=== PATIENT | female | born 1950 | race Caucasian/White ===

== ENCOUNTER 2021-06-29 11:43 | Emergency (ER) | payer OTHER ==
[2021-06-29 12:05] VITALS: BP 114/65; PULSE 53; TEMP 97.5
[2021-06-29 12:40] LABS: BASO % 0.4 % (0-2.0); HEMATOCRIT 39.8 % (32.4-45.2); HEMOGLOBIN 13.7 GM/dL (10.7-15.3); LYMPH % 18.8 % (8-40); MCH 32.4 pg (25.7-33.7); MCHC 34.4 g/dl (32.0-36.0); MEAN CELL VOLUME 94.1 fl (80-96); MEAN PLT VOLUME 8.9 fl (7.5-11.1); MONO % 5.5 % (3.8-10.2); NEUT % 75.3 % (42.8-82.8); PLATELET COUNT 255 10^3/uL (134-434); RBC 4.23 M/mm3 (3.60-5.2); RDW 13.8 % (11.6-15.6); WHITE BLOOD COUNT 9.4 K/mm3 (4.0-10.0)
[2021-06-29] MEDS ORDERED: CASIRIVIMAB/IMDEVIMAB 10 ML in SODIUM CHLORIDE 100 ML IVPB ONE (12:47)
[2021-06-29 12:57] LABS: ALBUMIN 3.2 g/dl (3.4-5.0); CALCIUM 9.2 mg/dL (8.5-10.1)
[2021-06-29 13:00] LABS: CREATININE 1.2 mg/dL (0.55-1.3)
[2021-06-29 13:02] LABS: BILIRUBIN,TOTAL 0.6 mg/dL (0.2-1); TOT PROT 7.5 g/dl (6.4-8.2)
[2021-06-29 13:07] LABS: BLOOD UREA NITROGEN 21.3 mg/dL (7-18)
== END 2021-06-29 17:00 | disposition home or self-care (01) ==
LOC: JER 11:43 → JCOVINFU 11:43
DX: U07.1 COVID-19 (principal)
CPT/HCPCS: 36415; 71046-TC-FY; 80053; 85025; 99284-25; Q0240